=== PATIENT | female | born 1985 | race African-American/Black ===

== ENCOUNTER 2017-03-10 00:15 | Emergency (ER) | payer OTHER, MEDICAID ==
[~2017-03-10] VITALS: Ht 170.2 cm; Wt 81.1 kg
[~2017-03-10 00:15] MED LIST: AUGM875T PO
[2017-03-10 00:21] VITALS: BP 125/73; PULSE 77; RESP 18; TEMP 98; O2SAT 99
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
[2017-03-10] MEDS ORDERED: ACETAMINOPHEN 500 MG CPLT PO ONE (02:00)
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
[2017-03-10] MEDS ORDERED: IBUP-232 PO (03:16)
[2017-03-10 03:24] VITALS: BP 118/68; PULSE 72; RESP 16; O2SAT 99
[2017-03-10] MEDS ORDERED: IBUPROFEN 600 MG TAB PO ONE (03:30)
== END 2017-03-10 03:27 | disposition home or self-care (01) ==
LOC: PHED 00:15
DX: S16.1XXA Strain of muscle, fascia and tendon at neck level, initial encounter (principal); V43.52XA Car driver injured in collision with other type car in traffic accident, initial encounter
CPT/HCPCS: 70450; 72125; 84703